=== PATIENT | male | born 1995 | race Caucasian/White ===

== ENCOUNTER 2021-01-22 08:11 | Emergency (ER) | payer OTHER ==
[~2021-01-22] VITALS: Ht 182.9 cm; Wt 77.1 kg
[2021-01-22] MEDS ORDERED: diphenhydrAMINE 25MG CAP PO ONE (09:50)
[2021-01-22] MEDS ORDERED: predniSONE 20 MG TAB PO ONE (09:50)
[2021-01-22] MEDS ORDERED: ONDANSETRON 4 MG ORAL DISINTEGRATING TAB PO ONE (09:50)
[2021-01-22] MEDS ORDERED: FAMOTIDINE 20 MG TAB PO ONE (09:50)
[2021-01-22] MEDS ORDERED: DIPH25CA32 PO (10:35)
[2021-01-22] MEDS ORDERED: ALLE60TA69 PO (10:35)
[2021-01-22] MEDS ORDERED: MEDR4PAK PO (10:50)
[2021-01-22] MEDS ORDERED: ONDA4TAB6 PO (10:50)
[2021-01-22] MEDS ORDERED: PEPC1TAB5 PO (10:50)
[2021-01-22 11:15] VITALS: BP 125/63
== END 2021-01-22 11:10 | disposition home or self-care (01) ==
LOC: EDBD 08:11 → M ED 08:11
DX: T78.1XXA Other adverse food reactions, not elsewhere classified, initial encounter (principal); R11.2 Nausea with vomiting, unspecified; R19.7 Diarrhea, unspecified; Z79.899 Other long term (current) drug therapy
CPT/HCPCS: 99283; J7512; Q0162

== ENCOUNTER → 2022-07-15 | Outpatient (CLI) | payer OTHER ==
[~2022-07-15] MED LIST: ALLE60TA69 PO; DIPH-435 PO; MEDR4PAK PO; ONDA4TAB6 PO; PEPC1TAB5 PO
[2022-07-15 17:26] LABS: BASO % 0.4 % (0.0-1.0); EOS # 0.1 10^3/uL (0.0-0.5); EOS % 1.2 % (0.0-3.0); HEMATOCRIT 49.4 % (42.0-52.0); HEMOGLOBIN 17.4 g/dl (13.5-17.5); LYMPH # 2.1 10^3/uL (1.5-5.0); LYMPH % 21.8 % (24.0-44.0); MEAN CORPUSCULAR HEMOGLOBIN 31.1 pg (27.0-33.0); MEAN CORPUSCULAR HGB CONC 35.2 g/dl (32.0-36.5); MEAN CORPUSCULAR VOLUME 88.2 fl (80.0-96.0); MONO # 0.5 10^3/uL (0.0-0.8); NEUTROPHILS # 6.8 10^3/uL (1.5-8.5); NEUTROPHILS % 71.3 % (36.0-66.0); PLATELET COUNT, AUTOMATED 229 10^3/uL (150-450); WHITE BLOOD COUNT 9.5 10^3/uL (4.0-10.0)
[2022-07-15 17:41] LABS: MONO SCRN NEGATIVE (NEGATIVE)
== END ==
LOC: M WUC 14:50
PROVIDERS: ATTEND Nurse Practitioner Family
DX: J02.9 Acute pharyngitis, unspecified (principal)

== ENCOUNTER 2022-09-02 18:27 | Emergency (ER) | payer OTHER ==
[~2022-09-02] VITALS: Ht 182.9 cm; Wt 94.5 kg
[2022-09-02] MEDS ORDERED: CYCL-707 (18:34)
[2022-09-02] MEDS ORDERED: BUSP15TA47 (18:34)
[2022-09-02] MEDS ORDERED: SUMA50TA2 (18:34)
[2022-09-02] MEDS ORDERED: HYDR200T3 (18:34)
[2022-09-02] MEDS ORDERED: MELO15TA28 (18:34)
[2022-09-02] MEDS ORDERED: METOCLOPRAMIDE INJ 10MG/2ML VIAL IV ONE (21:50)
[2022-09-02] MEDS ORDERED: NS 1,000 ML IV ONE (21:50)
[2022-09-02] MEDS ORDERED: diphenhydrAMINE 50MG/ML VIAL IV ONE (21:50)
[2022-09-02 23:41] VITALS: BP 122/82
== END 2022-09-03 00:14 | disposition home or self-care (01) ==
LOC: M ED 18:27
DX: G43.909 Migraine, unspecified, not intractable, without status migrainosus (principal); Z79.899 Other long term (current) drug therapy; Z79.52 Long term (current) use of systemic steroids; Z79.818 Long term (current) use of other agents affecting estrogen receptors and estrogen levels
CPT/HCPCS: 96361; 96374; 96375; 99284; J1100; J1200; J2765